=== PATIENT | female | born 1985 | race African-American/Black ===

== ENCOUNTER 2017-08-11 09:49 | Day surgery (SDC) | payer MEDICAID ==
[2017-08-11 10:04] LABS: HCG,QUAL RESULT NEGATIVE (NEGATIVE)
[2017-08-11] MEDS ORDERED: SIMETHICONE 40 MG/0.6 ML ML ONE (10:07)
[2017-08-11] MEDS: MEPERIDINE HCL/PF 100 MG/ML AMP ONE ×2 (11:15→11:28)
[2017-08-11] MEDS: MIDAZOLAM HCL 5 MG/5 ML VIAL ONE ×6 (11:15→11:32)
[2017-08-11 13:43] VITALS: BP_SYST 123
== END 2017-08-11 14:15 | disposition home or self-care (01) ==
LOC: SMU 09:49 → SDS 09:49
PROVIDERS: ATTEND Internal Medicine Gastroenterology
DX: K52.89 Other specified noninfective gastroenteritis and colitis (principal); K64.9 Unspecified hemorrhoids
CPT/HCPCS: 45380; 84703; 88305; J2175; J2250; J7030